=== PATIENT | female | born 1930 | race American Indian/Alaskan Native ===

== ENCOUNTER 2016-09-27 06:37 | Outpatient (CLI) | payer MEDICARE ==
[2016-09-27 07:42] LABS: Blood Urea Nitrogen 10 mg/dL (7-17)
--- NOTE | 2016-09-27 09:54 | Magnetic Resonance Report ---
MRI ABDOMEN WITH AND WITHOUT CONTRAST INDICATION: Neoplasm of uncertain behavior of left kidney. COMPARISON: None similar. FINDINGS: Multiplanar and multisequence MRI of the abdomen performed utilizing 15 ml Multihance intravenously, though limited due to breathing artifact. Nonspecific distal esophageal wall prominence/thickening, not excluded for gastroesophageal reflux and/or hiatal hernia, amongst others. No effusions. Mild diffuse fatty hepatic infiltration possible. Approximately 1.5 cm hepatic cyst anterosuperiorly in the medial segment of the left hepatic lobe, axial series 3, image 7. Otherwise unremarkable liver, spleen, gallbladder, pancreas, adrenals, nonaneurysmal abdominal aorta and IVC. No ascites or definite significant adenopathy. Bowel, bladder and muscle signal within normal limits. Colonic diverticulosis possible. Lower lumbar degenerative changes. Kidneys demonstrate no hydronephrosis. At least 2 right renal cortical T2 hyperintensities/cysts, largest approximately 0.7 cm. A large, 6.3 x 5.3 cm left upper to mid renal complex cystic mass with innumerable intrinsic septations noted somewhat expanding the left kidney. Intrinsic septal enhancement noted, though without definite nodularity or calcification appreciated, to the extent assessed. CONCLUSION: 1. Large, approximately 6.3 x 5.3 cm left renal complex mass/cystic neoplasm with enhancing innumerable intrinsic septations noted, as described. No definite venous invasion or other complications, to the extent assessed. 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 Other possibilities as an abscess less favored, given overall appearance. Please also correlate clinically and with prior relevant imaging. If none available, renal mass protocol CT would also be further helpful, if renal function allows. 2. Few other incidental findings, including distal esophageal prominence/thickening, small hepatic and right renal cysts and possible fatty liver, amongst others, as above. Thank you for the opportunity to participate in this patient's care.
== END 2016-09-27 06:38 | disposition home or self-care (01) ==
LOC: MRI 06:37
PROVIDERS: ATTEND Urology
DX: D41.02 Neoplasm of uncertain behavior of left kidney (principal); K76.89 Other specified diseases of liver; M47.896 Other spondylosis, lumbar region; I10 Essential (primary) hypertension; E78.00 Pure hypercholesterolemia, unspecified; E03.9 Hypothyroidism, unspecified
CPT/HCPCS: 36415; 74183; 82565; 84520; A9577

== ENCOUNTER 2017-08-21 10:28 | Outpatient (CLI) | payer MEDICARE ==
--- NOTE | 2017-08-22 07:47 | Magnetic Resonance Report ---
MRI ABDOMEN WITHOUT CONTRAST HISTORY: Neoplasm of uncertain behavior of left kidney. TECHNIQUE: Multiple T1 and T2-weighted images with and without fat suppression. FINDINGS: Left nephrectomy changes are noted since the MR abdomen with and without contrast performed 09/27/16. The left renal fossa is unremarkable. No recurrent mass or fluid collection. No adenopathy is identified in the abdomen. The right kidney measures 9.4 cm in length. There are 3 small simple cortical cyst in the mid right kidney measuring up to 1 cm. No right renal mass or obstruction. The liver remains normal size and contour. 1.7 cm cyst in the left hepatic lobe is unchanged. No suspicious liver mass. The hepatic vasculature and portal venous system are patent. There are filling defects in the gallbladder consistent with sludge or small stones. No biliary dilatation or inflammation. The pancreas, spleen and adrenal glands are unremarkable. The visualized bowel loops are within normal limits. MR signal of the visualized bony structures are within normal limits. IMPRESSION: Left nephrectomy changes since 08/21/17. No evidence for residual or recurrent disease. Cholelithiasis. Liver cyst.
== END 2017-08-21 10:29 | disposition home or self-care (01) ==
LOC: MRI 10:28
PROVIDERS: ATTEND Urology
DX: D41.02 Neoplasm of uncertain behavior of left kidney (principal); K80.20 Calculus of gallbladder without cholecystitis without obstruction; K76.89 Other specified diseases of liver; K21.9 Gastro-esophageal reflux disease without esophagitis; E03.9 Hypothyroidism, unspecified; I10 Essential (primary) hypertension; G47.30 Sleep apnea, unspecified; Z90.5 Acquired absence of kidney
CPT/HCPCS: 74181